=== PATIENT | female | born 1980 | race Caucasian/White ===

== ENCOUNTER 2024-05-11 04:18 | Day surgery (SDC) | payer OTHER ==
[2024-05-08 10:19] VITALS: BMI 26.1
[2024-05-11] MEDS ORDERED: MIDAZOLAM HCL 2 MG/2 ML SINGLE DOSE VIAL ONE (15:15)
[2024-05-11] MEDS ORDERED: oxyCODONE HCL 5 MG TABLET PO PRN (15:49)
[2024-05-11] MEDS ORDERED: ONDANSETRON 4 MG/2 ML VIAL IVPUSH PRN (15:49)
[2024-05-11 16:37] VITALS: BP 139/70; PULSE 94; RESP 22; TEMP 97.7
== END 2024-05-11 15:45 | disposition home or self-care (01) ==
LOC: JASU-SURG 04:18
PROVIDERS: ATTEND Urology
PROC: 0TF4XZZ Fragmentation in Left Kidney Pelvis, External Approach (ICD-10-PCS; principal; 2024-05-11 15:31)
DX: N20.0 Calculus of kidney (principal)
CPT/HCPCS: 81025; 94760